=== PATIENT | female | born 1960 ===

== ENCOUNTER → 2025-01-27 07:59 | Outpatient (REF) | payer OTHER, SELFPAY | LOC: HWRAD 07:59 | PROVIDERS: ATTENDING PHYSICIAN Nurse Practitioner; FAMILY PHYSICIAN Family Medicine | DX: R10.9 Unspecified abdominal pain (principal); N30.10 Interstitial cystitis (chronic) without hematuria | CPT/HCPCS: 76770; 76856 ==